=== PATIENT | female | born 1955 | race Caucasian/White ===

== ENCOUNTER 2019-06-17 04:23 | Emergency (ER) | payer OTHER ==
[2019-06-17] MEDS: SOD CHLORIDE 0.9% 250 ML IV (07:12)
[2019-06-17] MEDS: BELLADONNA/PHENOBARBITAL TAB PO (07:12)
[2019-06-17] MEDS: LIDOCAINE/MYLANTA 40 ML BTL PO (07:12)
[2019-06-17] MEDS: FAMOTIDINE 20 MG INJ IV (07:13)
[2019-06-17] MEDS: ONDANSETRON 4 MG INJ IV (07:13)
[2019-06-17 07:36] LABS: ADD MAN DIFF? NO
[2019-06-17 07:40] LABS: WHITE BLOOD COUNT 8.9 10^3/ul (4.8-10.8)
[2019-06-17 07:40] LABS: BASOPHILS % 0.5 % (0.0-2.0); EOSINOPHILS # 0.1 10^3/ul (0.0-0.5); EOSINOPHILS % 1.2 % (0.0-7.0); HEMATOCRIT 46.7 % (37.0-47.0); LYMPHOCYTES # 1.2 10^3/ul (0.8-2.9); MEAN CORPUSCULAR HEMOGLOBIN 29.1 pg (29.0-33.0); MEAN CORPUSCULAR HGB CONC 32.1 g/dl (32.0-37.0); MEAN CORPUSCULAR VOLUME 90.7 fl (82.0-101.0); MEAN PLATELET VOLUME 10.5 fl (7.4-10.4); MONOCYTE # 0.4 10^3/ul (0.3-0.9); MONOCYTES % 4.6 % (0.0-11.0); NEUTROPHILS % 79.4 % (39.0-77.0); PLATELET COUNT 264 10^3/UL (140-415); RED BLOOD COUNT 5.15 10^6/ul (4.20-5.40); RED CELL DISTRIBUTION WIDTH 13.2 % (11.5-14.5)
[2019-06-17 07:48] LABS: ADD UMIC NO; UR ASCORBIC ACID NEGATIVE (NEGATIVE); UR BILIRUBIN (Dip) NEGATIVE (NEGATIVE); UR BLOOD (Dip) NEGATIVE (NEGATIVE); UR CLARITY SLIGHTLY CLOUDY (CLEAR); UR COLOR YELLOW (YELLOW); UR GLUCOSE (Dip) NEGATIVE (NEGATIVE); UR KETONES (Dip) NEGATIVE (NEGATIVE); UR LEUKOCYTE ESTERASE (Dip) NEGATIVE Leu/ul (NEGATIVE); UR MUCUS FEW /HPF (NONE SEEN); UR NITRITE (Dip) NEGATIVE (NEGATIVE); UR RBC 1 /HPF (0-5); UR SPECIFIC GRAVITY (Dip) 1.017 (1.003-1.030); UR TOTAL PROTEIN (Dip) NEGATIVE (NEGATIVE); UR UROBILINOGEN (Dip) NEGATIVE (NEGATIVE); UR WBC 2 /HPF (0-5)
[2019-06-17 07:59] LABS: ALANINE AMINOTRANSFERASE 38 IU/L (13-69); ALBUMIN 4.8 g/dl (3.3-4.9); ALBUMIN/GLOBULIN RATIO 1.26; ALKALINE PHOSPHATASE 89 IU/L (42-121); ANION GAP 11 (5-13); ASPARTATE AMINO TRANSFERASE 30 IU/L (15-46); BILIRUBIN,INDIRECT 0.5 mg/dl (0-1.1); BILIRUBIN,TOTAL 0.5 mg/dl (0.2-1.3); BLOOD UREA NITROGEN 18 mg/dl (7-20); CALCIUM 9.9 mg/dl (8.4-10.2); CARBON DIOXIDE 27 mmol/L (21-31); CHLORIDE 104 mmol/L (97-110); CREATININE 0.71 mg/dl (0.44-1.00); Estimated GFR > 60 mL/min (>60); GLUCOSE 135 mg/dl (70-220); LIPASE 41 U/L (23-300); SODIUM 142 mmol/L (135-144); TOTAL PROTEIN 8.6 g/dl (6.1-8.1)
== END 2019-06-17 09:01 | disposition home or self-care (01) ==
LOC: E/R 04:23
DX: K82.8 Other specified diseases of gallbladder (principal)
CPT/HCPCS: 36415; 76705; 80053; 81001; 81003; 83690; 85025; 93005; 96374; 96375; 99285-25